=== PATIENT | female | born 2000 | race Caucasian/White ===

== ENCOUNTER 2021-08-16 09:28 | Outpatient (RCR) | payer OTHER, SELFPAY ==
[2021-08-16 09:44] VITALS: BMI 32.5
[2021-08-16 09:45] VITALS: BMI 32.5
== END 2021-11-05 09:30 | disposition home or self-care (01) ==
LOC: ANHDMC 09:28
PROVIDERS: PCP Family Medicine; Visit Provider Family Medicine
DX: R79.89 Other specified abnormal findings of blood chemistry (principal); Z71.3 Dietary counseling and surveillance
CPT/HCPCS: 97802

== ENCOUNTER 2023-05-23 12:54 | Outpatient (CLI) | payer OTHER, SELFPAY ==
[2023-05-23 14:05] LABS: Alanine Aminotransferase 27 U/L (6-35); Albumin Level 4.1 g/dL (3.5-5.1); Alkaline Phosphatase 70 U/L (38-126); Amylase 54 U/L (30-110); Aspartate Amino Transferase 27 U/L (14-36); Bilirubin,Total 0.3 mg/dL (0.2-1.3); Lipase 54 U/L (23-300)
== END 2023-05-23 12:55 | disposition home or self-care (01) ==
LOC: ANHSURGERY 12:58
PROVIDERS: PCP Family Medicine; Visit Provider Surgery
DX: K82.8 Other specified diseases of gallbladder (principal)
CPT/HCPCS: 36415; 80076; 82150; 83690; 86850; 86900; 86901

== ENCOUNTER 2023-05-28 01:05 | Day surgery (SDC) | payer OTHER, SELFPAY ==
[2023-05-19 13:17] VITALS: BMI 41.5
--- NOTE | 2023-05-19 13:29 | PC.NURSE ---
Addendum entered by Emely Bermudez RN 05/19/23 13:52: correction of planned procedure time-1300 (arrive at 1100). Original Note: Report to the Outpatient Waiting Room, entrance under the green pavilion located off [facility], at 1100 on 05/28/23. Planned Procedure Time: 1200. Time changes happen often and if your time is changed the preop area will call you the afternoon before. - You and your visitor will be asked to self-screen and do not enter if you have any COVID symptoms. - A mask is optional within the hospital at this time. Patients may have clear liquids (water, carbonated beverages, clear teas, apple juice) until 3 hours prior to surgery with a maximum of 20 ounces. - No food from midnight until time of surgery. Take the following medications with a SIP of water the morning of surgery: N/A DO NOT STOP ANY OF YOUR OTHER PRESCRIPTION MEDICATIONS PRIOR TO SURGERY ?EXCEPT THE FOLLOWING Medications to discontinue per physician N/A Date to take last dose N/A Please no make-up, nail bermudian, hairspray, perfume, deodorant, or body powder the day of surgery. No jewelry (including any body piercings) or valuables the day of surgery, leave them at home. Please take a shower or bath the night before, or the morning of, surgery with an antibacterial soap-Hibiclens (Chlorhexadine Gluconate 1%). Wear comfortable, loose fitting clothing. - Jewelry must be removed prior to entering the operating room. Rings and piercings that are not removed may be cut off. - The hospital will not accept responsibility for valuables. - Please leave all valuables, including medications, at home the day of surgery. If you are going home after surgery, a licensed highway truck driver must drive you home. - NO public transportation without another adult if you receive anesthesia. - We recommend that an adult stay with you for 24 hours following discharge. - We also recommend that you do not drive, make important decision, drink alcoholic beverages, or take any drugs that were not prescribed by your health care provider for at least 24 hours after your discharge time. Follow any additional instructions given to you from your surgeon. If you or anyone in your household have experienced Covid symptoms in the past week, please notify your surgeon or the nurse liaison at the phone number below for possible testing. Telephone instructions given to patient and asked if any additional questions and then verbalized understanding. Patient advised to call surgeon office or pre surgery nurse liaison [phone] if any additional questions.
[2023-05-28] VITALS (8 sets, daily range): BP systolic 126–144; BP diastolic 48–86; PULSE 88–107; RESP 10–18; TEMP 36.9; O2SAT 94–100
[2023-05-28] MEDS: LACTATED RINGERS 1,000 ML 30 ML IV CONT ×3 (11:41→16:05)
[2023-05-28] MEDS: INDOCYANINE GREEN 25 MG VIAL WITH DILUENT 3.75 MG IV PUSH (11:45)
[2023-05-28] MEDS: ACETAMINOPHEN 500 MG TABLET 1000 MG PO (11:47)
[2023-05-28] MEDS: KETOROLAC 15 MG/ML VIAL (*BKC) IV PUSH (11:54)
--- NOTE | 2023-05-28 12:15 | WPDANESEPPF ---
Anes - Initial Pre Proc Eval Procedure: Operation Date: 05/28/23 13:00 Proposed Procedures p Laparoscopic Cholecystectomy, Davinci Assisted - Brent Freedman DO Date/Time: 05/28/23 12:15 Surgeon: Brent Freedman DO Pre Op Diagnosis: biliary dyskinesia Patient Data Age: 22 Gender: F Height: 1.55 m Weight: 109.7 kg Last Vital Signs Temp 36.9 C 05/28/23 11:07 Pulse 88 05/28/23 11:07 Resp 16 05/28/23 11:07 BP 126/67 05/28/23 11:07 Pulse Ox 100 05/28/23 11:07 O2 Del Method Room Air 05/28/23 11:07 Allergies Allergy/AdvReac Type Severity Reaction Status Date / Time adhesive Allergy Intermediate Hives Verified 05/28/23 11:28 Home Medications Medication Instructions Recorded Confirmed Type riboflavin (vitamin B2) 400 mg 400 mg PO DAILY #30 tabs 09/18/22 05/28/23 Rx tablet rizatriptan 10 mg tablet (Maxalt) 5 mg PO ONCE PRN migraine headache 09/18/22 05/19/23 Rx #9 tabs Patient hx anesthesia problems: none Family hx anesthesia problems: none Results Review: All pre-operative results and documents have been reviewed as part of the pre-operative evaluation. [facility] Past Medical History Medical History Anxiety Depression Low back pain Surgical History Surgical History H/O left knee surgery 2017 Family History Family History Other Diabetes mellitus Myocardial infarction Social History Social History Social History: never smoker Smoking status: Never smoker Second hand tobacco smoke exposure: Yes (aunt/uncle) Alcohol intake: current Drinks per week: 1 Alcohol use details: Very rare alcohol use Substance use: never Lack of Transportation: No Lack of Food: Never True Current Housing: I Have Housing Concerned About Future Housing: No Difficulty Paying Gas/Electric Bills: No Difficulty Paying for Meds: YES Currently Unemployed: YES Education: High School Diploma/GED Difficulty w/ Childcare or Family Care: No Living arrangements: with family Spiritual care concerns: No Anes - Eval Final PreProcedure Day of Procedure 05/28/23 12:15 Patient weight: morbidly obese Heart: regular rate and rhythm Lungs: clear to auscultation Airway: Mallampati scale class II Neurological: alert and oriented Last oral intake: >/= 8 hours ASA classification: III Emergent: no Anesthetic plan: proceed Anesthesia type and monitoring: general ETT and standard monitoring Results Review: All pre-operative results and documents have been reviewed as part of the pre-operative evaluation. Informed Consent: The patient's anesthetic plan and its attendant risks and benefits were discussed with the patient/family/POA. Questions were solicited and answers provided to the satisfaction of the patient/family/POA.
--- NOTE | 2023-05-28 13:15 | WPDHPUPDATE1 ---
History and Physical Update Update Date/Time: 05/28/23 13:15 History and Physical has been reviewed, including an updated exam of the patient. There are NO changes in the patient's condition. I did discuss proceeding with laparoscopic cholecystectomy, da Keerthi assisted and patient is agreeable to proceeding. That is the only change to the plan. Risks, benefits, and alternatives have been discussed and questions answered. Patient agrees to proceed with procedure.
[2023-05-28] MEDS: ceFAZolin 2 GM/D5W 50 ML 2 GM/50 ML BAG IVPB (13:28)
[2023-05-28] MEDS: BUPIVACAINE/EPINEPHRINE 0.25% 50 ML VIAL 30 ML INFILTRATE (14:00)
--- NOTE | 2023-05-28 14:35 | W.PM.PROC2 ---
Procedure Note - Detailed Date of Procedure 05/28/23 Pre-op Diagnosis biliary dyskinesia Post-op Diagnosis Same Procedure Performed 1. Laparoscopic cholecystectomy with cholangiography, da Keerthi assisted 2. Interpretation of cholangiography Surgeon Brent Freedman, DO Anesthesia General and Local (0.5% bupivacaine) Indications This is a 22-year-old woman who presented with intermittent right upper quadrant pain after eating. She had noticed this more commonly after eating fried or fatty foods. She had previous workup including a gallbladder ultrasound which was normal and a HIDA scan which showed borderline low gallbladder ejection fraction at 34%. Discussions were made with the patient about treatment options and decision was made to proceed with robotic assisted laparoscopic cholecystectomy. Findings Laparoscopic cholecystectomy was performed. The patient's gallbladder had several pericholecystic adhesion but otherwise appeared normal. The cystic duct appeared normal in size. Near fluorescence imaging was used with indocyanine green to adequately visualize the neck of the gallbladder and cystic duct. This helped to confirm the critical view of safety. The gallbladder was then removed and sent the lab for pathology. Description of Procedure Procedure as well as risks, benefits, and alternatives were discussed with the patient. Written consent was obtained and placed in chart prior to procedure. 1.5 mL of indocyanine green was given intravenously in preop. Patient was brought back to surgical suite. She was placed supine on operating table. Time-out was done to confirm patient and procedure. She was then intubated by the anesthesia department. Her abdomen was then prepped and draped in sterile fashion using chlorhexidine prep. 0.5% bupivacaine was infiltrated locally at the site of each port placement. An 8 mm incision was made just superior to the umbilicus and a 5 mm Optiview trocar was then advanced through the abdominal layers under direct visualization. Once inside the abdominal cavity, carbon dioxide insufflation was used to create a pneumoperitoneum. The camera was inserted and the abdomen was inspected. No mediated abnormalities were noted. The patient was placed in 10? reverse Trendelenburg position and rotated 10? to the left. Two 8 mm incisions were made in the right lateral abdomen and 2 8 mm trocars were inserted under direct visualization. A 8 mm incision was made in the left lateral abdomen and a 8 mm trocar was inserted under direct visualization. The 5 mm Optiview trocar was then removed and another 8 mm trocar was inserted in its place. The robotic arms were then brought up to the patient's bedside and secured to each port. The camera and instruments were inserted. I then moved over to the robotic consult to take control of the camera and instruments. The gallbladder was grasped at the fundus and retracted cephalad. The infundibulum of the gallbladder was then grasped and retracted laterally. Hook electrocautery was then used to carefully dissect around the neck of the gallbladder. The cystic duct was identified and a window was created around it using hook electrocautery. The cystic artery was also identified and a window was created behind it using hook electrocautery. Critical view of safety was identified visualizing the cystic duct running directly into the neck of the gallbladder and the cystic artery running directly into the wall the gallbladder. The camera view was switched to firefly mode and the indocyanine green within the gallbladder and cystic duct was clearly visualized. No other structures were noted running into this region and there did not appear to be any obstruction of the cystic duct impeding flow of bile into the gallbladder. The camera mode was switched back to regular mode. Hemo lock clips were placed on both the cystic duct and cystic artery. Two clips were placed proximally and 1 distally. Thania
[2023-05-28] MEDS: ONDANSETRON INJ 4 MG/2 ML VIAL IV PUSH (15:14)
[2023-05-28] MEDS: fentaNYL CITRATE INJ (*CRX) 100 MCG/2 ML VIAL 25 MCG IV PUSH ×2 (15:27→15:31)
[2023-05-28] MEDS: SCOPOLAMINE 1.5 MG PATCH TRANSDERM (16:07)
[2023-05-28] MEDS: HALOPERIDOL LACTATE 5 MG/ML VIAL 1 MG IV PUSH (16:11)
== END 2023-05-28 16:48 | disposition home or self-care (01) ==
PROVIDERS: PCP Family Medicine; Visit Provider Surgery
PROC: 0FT44ZZ Resection of Gallbladder, Percutaneous Endoscopic Approach (ICD-10-PCS; CPT 47562; principal; 2023-05-28 13:00)
DX: K81.1 Chronic cholecystitis (principal); E66.01 Morbid (severe) obesity due to excess calories; Z68.42 Body mass index [BMI] 45.0-49.9, adult
CPT/HCPCS: 47563; S2900; 88304; A9270; J0690; J1100; J1170; J1630; J1885; J2250; J2405; J2704; J3010; J7120